=== PATIENT | male | born 1955 | race Hispanic/Latino ===

== ENCOUNTER 2018-02-23 14:00 | Emergency (ER) | payer SELFPAY ==
[2018-02-23 14:39] VITALS: TEMP 97
--- NOTE | 2018-02-23 15:21 | CT ---
EXAM DESCRIPTION: Cervical Spine CLINICAL HISTORY: headache, fall -16 ft ladder COMPARISON: None available. TECHNIQUE: Axial noncontast CT of the cervical spine with coronal and sagittal reformats. This exam was performed according to our departmental dose-optimization program, which includes automated exposure control, adjustment of the mA and/or kV according to patient size and/or use of iterative reconstruction technique. FINDINGS: Cervical vertebral body heights are maintained. There is straightening of the normal cervical lordosis. 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 No acute fracture or posttraumatic positional abnormality of the cervical spine is seen. Moderate disc space narrowing from C5 through C7 with disc osteophytic ridging contributes to at least mild spinal canal stenosis and [id number] foraminal encroachment. Soft tissues show no acute findings. Lung apices are unremarkable. IMPRESSION: No CT evidence of acute fracture or posttraumatic positional abnormality of the cervical spine is seen. Moderate disc degenerative changes at C5-6 and C6-7 contributes to spinal canal stenosis and foraminal encroachment. Electronically signed by: Kevin Rider MD 02/23/2018 3:20 PM CDT
--- NOTE | 2018-02-23 15:23 | RAD ---
EXAM DESCRIPTION: Chest,1 View CLINICAL HISTORY: sob COMPARISON: None. IMPRESSION: Single AP portable upright view of the chest shows cardiac silhouette and pulmonary vasculature to be within normal limits. Lungs are hypoaerated . There is crowding of the bronchovascular markings in the perihilar regions bilaterally that could be related to poor inspiratory effort versus atelectasis or infiltrates. No obvious pleural effusion or pneumothorax is seen. Electronically signed by: Kevin Rider MD 02/23/2018 3:21 PM CDT
--- NOTE | 2018-02-23 15:23 | RAD ---
EXAM DESCRIPTION: Wrist,Left 3 Views CLINICAL HISTORY: left wrist pain COMPARISON: None. IMPRESSION: 4 views of the left wrist show a comminuted, intra-articular minimally impacted fracture of the distal radius. No significant angulation of the fracture fragments is seen. Moderate vascular calcifications are seen. Mild osteoarthritic changes of the first carpometacarpal joint are seen. Electronically signed by: Kevin Rider MD 02/23/2018 3:22 PM CDT
--- NOTE | 2018-02-23 15:25 | CT ---
EXAM DESCRIPTION: Chest w/Contrast CLINICAL HISTORY: 62 years, Male, headache, fall -16 ft ladder COMPARISON: None TECHNIQUE: Thin-section axial CT images are obtained during rapid bolus administration of nonionic IV contrast media. Reconstructed MPR images are created and reviewed as well. This exam was performed according to our departmental dose-optimization program, which includes automated exposure control, adjustment of the mA and/or kV according to patient size and/or use of iterative reconstruction technique. FINDINGS: Enhanced examination of the chest demonstrates normal vascular enhancement with no evidence of aortic injury. The base of the neck and thoracic inlet as well as the hilar regions and middle mediastinum are unremarkable. Crowded basilar markings in both lower lung verduzco are present consistent with dependent atelectasis. No pulmonary contusion or hemothorax or pneumothorax is seen. Hypertrophic degenerative changes in the lower dorsal spine are present with normal alignment. The sternum appears intact. Minimal scoliosis of the spine towards the right is present. No definite rib fractures and no compression deformities of the dorsal spine noted. IMPRESSION: Small lung volumes with dependent atelectasis in both posterior lung bases with no evidence of acute intrathoracic injury. Electronically signed by: Edgard Andres MD 02/23/2018 3:24 PM CDT
--- NOTE | 2018-02-23 15:25 | CT ---
EXAM DESCRIPTION: Head CLINICAL HISTORY: headache, fall -16 ft ladder COMPARISON: None TECHNIQUE: Noncontrast transaxial CT images of the head are obtained from base to vertex. This exam was performed according to our departmental dose-optimization program, which includes automated exposure control, adjustment of the mA and/or kV according to patient size and/or use of iterative reconstruction technique. FINDINGS: The midline structures are not displaced. The sulci are age appropriate. The lateral, third, and fourth ventricles are normal in size, shape, and anatomic positioning. There is no evidence of mass, mass effect, hydrocephalus, or acute intracranial hemorrhage. No abnormal extra axial fluid collections are seen. Normal ayers-white differentiation is seen. The visualized bone windows show no depressed skull fracture or significant abnormality. The visualized paranasal sinuses and mastoid air cells are clear. IMPRESSION: 1. No acute abnormality is seen on noncontrast CT of the head. Electronically signed by: Kevin Rider MD 02/23/2018 3:24 PM CDT
--- NOTE | 2018-02-23 15:26 | RAD ---
EXAM DESCRIPTION: Pelvis CLINICAL HISTORY: sob pelvic pain status post trauma. COMPARISON: None. IMPRESSION: Single AP view of the pelvis shows no evidence of acute fracture, focal bone destruction, or joint dislocation. Mild osteoarthritic changes of the hips are seen. Contrast is seen in the urinary bladder and right ureter. Electronically signed by: Kevin Rider MD 02/23/2018 3:25 PM CDT
--- NOTE | 2018-02-23 15:56 | CT ---
EXAM DESCRIPTION: Maxillofacial CLINICAL HISTORY: headache, fall -16 ft ladder COMPARISON: None Available. TECHNIQUE: CT of the sinuses is performed with direct axial imaging technique. Multiplanar reformatted images are reviewed post along with source images. FINDINGS: Metallic foreign body in the left face is seen with metal artifact along the left side of the mandible below the level of the zygomatic arch. No mandibular fracture No definite fracture of the bones of the facial skeleton. Intact skull base. Normal aeration of tympanic cavities and mastoid air cells. Small mucous retention cysts in the inferior right maxillary sinus. No fluid levels in the paranasal sinuses. The lower portion of the calvarium appears intact. Intact appearance of the globes. Normal orbital contents. Slight deformity of the nasal skeleton is seen without significant overlying soft tissue swelling to suggest an acute fracture. Clinical correlation recommended. No buckling of the nasal septum. The maxillary processes appear intact. No fracture of the maxillary dolan or zygomatic arches. Normal TMJ alignment. Coronal and sagittal reformatted images confirm the findings. Coronal images suggest minimal fluid in the inferior maxillary sinuses bilaterally. No acute nasal bone fracture seen on the coronal images. No medial or inferior orbital blowout fracture. IMPRESSION: No acute fracture of the facial skeleton is identified. This exam was performed according to our departmental dose-optimization program, which includes automated exposure control, adjustment of the mA and/or kV according to patient size and/or use of iterative reconstruction technique. Total DLP 361.12. Electronically signed by: Paul Garcia MD 02/23/2018 3:55 PM CDT
[2018-02-23] MEDS ORDERED: HYDROcodone 7.5MG/APAP 325MG 1 EA TAB PO ONE (16:03)
--- NOTE | 2018-02-23 16:11 | ED.PDOC ---
History of Present Illness - General Chief Complaint: Trauma Stated Complaint: fall from ladder Time Seen by Provider: 02/23/18 14:18 Source: patient, family Exam Limitations: no limitations - History of Present Illness Initial Comments: HE FELL FROM A 16 FOOT LADDER, INJURED HIS FACE, HEAD LEFT WRIST. EVIDENTLY NO LOC. WAS AMBULATORY AT THE SCENE. HE IS BROUGHT TO THE ED BY POV. Timing/Duration: 1/2 hour Severity: moderate Improving Factors: nothing Worsening Factors: movement Associated Symptoms: denies symptoms Allergies/Adverse Reactions: Allergies NO KNOWN ALLERGY Allergy (Verified 02/23/18 14:44) Home Medications: Ambulatory Orders Tramadol HCl 50 mg PO Q6HR #20 tab 02/23/18 Review of Systems - Review of Systems Constitutional: States: no symptoms reported EENTM: States: no symptoms reported Respiratory: States: no symptoms reported Cardiology: States: no symptoms reported Gastrointestinal/Abdominal: States: abdominal pain Genitourinary: States: no symptoms reported Musculoskeletal: States: no symptoms reported, joint pain, joint swelling, other - LEFT WRIST. FACE IS SWOLLEN Skin: States: no symptoms reported Neurological: States: no symptoms reported Endocrine: States: no symptoms reported Past Medical History (General) - Patient Medical History Hx Stroke: No Hx of COPD: No Hx Congestive Heart Failure: No Hx Diabetes: No Surgical History: other Family Medical History - Family History Mother Family History: No Known Physical Exam - Physical Exam General Appearance: Alert, Comfortable, Well Developed Eye Exam: bilateral normal Ears, Nose, Throat: hearing grossly normal, normal ENT inspection, normal pharynx Neck: non-tender, full range of motion, supple, normal inspection Respiratory: chest non-tender, lungs clear, normal breath sounds, no respiratory distress, no accessory muscle use Cardiovascular/Chest: normal peripheral pulses, regular rate, rhythm, no edema, no gallop, no JVD, no murmur Gastrointestinal/Abdominal: normal bowel sounds, non tender, soft, tenderness - RUQ AND LUP PAIN Rectal Exam: deferred Back Exam: normal inspection, no CVA tenderness, no vertebral tenderness Extremity: other - LEFT WRIST TENDER TP PALPATION Neurologic: no motor/sensory deficits, alert, normal mood/affect, oriented x 3 Progress - Progress Progress: 02/23/18 16:27 IMAGING IS REPORTED: ONLY POSITIVE FINDING IS A LEFT INTRA-ARTICULAR FRACTURE OF THE DISTAL LEFT WRIST. - Results/Orders Results/Orders: LABORATORY IS REPORTED= NORMAL Procedures - Splinting Left Arm Hand-Made Type: fiberglass Splint: sugar-tong Pre-Proc Neuro Vasc Exam: normal Post-Proc Neuro Vasc Exam: normal Departure - Departure Clinical Impression: Cervical spine pain Distal radial fracture Qualifiers: Encounter type: initial encounter Fracture type: closed Fracture morphology: other intra-articular Laterality: left Qualified Code(s): S52.572A - Other intraarticular fracture of lower end of left radius, initial encounter for closed fracture Chest wall contusion Qualifiers: Encounter type: initial encounter Laterality: unspecified laterality Qualified Code(s): S20.219A - Contusion of unspecified front wall of thorax, initial encounter Facial contusion Qualifiers: Encounter type: initial encounter Qualified Code(s): S00.83XA - Contusion of other part of head, initial encounter Closed head injury Qualifiers: Encounter type: initial encounter Qualified Code(s): S09.90XA - Unspecified injury of head, initial encounter Time of Disposition: 16:35 Disposition: Discharge to Home or Self Care Condition: Fair Departure Forms: ED Discharge - Pt. Copy, Patient Portal Self Enrollment Instructions: DI for Trauma, DI for Forearm Fracture Diet: resume usual diet Prescriptions: Tramadol HCl 50 mg PO Q6HR #20 tab Home Medications: Ambulatory Orders Tramadol HCl 50 mg PO Q6HR #20 tab 02/23/18 Critical Care Note - Critical Care Note Total Time (mins): 35 Comments: CRITICAL EVENT: FALL FROM 16 FEET CRITICAL FINDINGS: LEFT WRIST FRACTURE CRITICAL ACTIONS: BODY SCAN, IV CRISTALOIDS, ANALGESIA CRITICAL TIME: 35 MINUTES SYSTEMS AT RISK: MUSCULOSKELETAL
[2018-02-23 17:10] VITALS: BP 126/66; O2SAT 98
--- NOTE | 2018-02-23 21:01 | CT ---
EXAM DESCRIPTION: Abdomen/Pelvis w/Contrast CLINICAL HISTORY: 62 years Male generalized chest pain and pelvic pain, fall -16 ft ladder COMPARISON: None. TECHNIQUE: Contiguous axial images obtained through the abdomen and pelvis following IV contrast. Reformatted images obtained. This exam was performed according to our department optimization program which includes automated exposure control, adjustment of the mA and/or kv according to patient size and/or use of iterative reconstruction technique. FINDINGS: Dependent atelectatic changes. The liver appears unremarkable. The spleen and pancreas appear unremarkable. No adrenal masses. The kidneys appear unremarkable. No hydronephrosis. The gallbladder is visualized. No aneurysmal dilatation of the aorta. No bowel obstruction. There is a cystic appearing lesion in the right lower quadrant which appears to be contiguous with the appendix. This measures approximately 7.5 cm in length by 4 cm in AP diameter by 4.4 cm in transverse diameter. 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 No free pelvic fluid. Fat-containing umbilical hernia. Degenerative changes in the spine and SI joints. No acute osseous abnormality is identified. IMPRESSION: No acute intra-abdominal injury is identified. 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 This finding was discussed with Dr. Pj Carr at approximately 9:00 PM. Electronically signed by: Deangelo Daniel MD 02/23/2018 9:00 PM CDT
== END 2018-02-23 17:12 | disposition home or self-care (01) ==
LOC: ER 14:00
DX: S00.83XA Contusion of other part of head, initial encounter (principal); S20.219A Contusion of unspecified front wall of thorax, initial encounter; S52.572A Other intraarticular fracture of lower end of left radius, initial encounter for closed fracture; S09.90XA Unspecified injury of head, initial encounter; M54.2 Cervicalgia; W11.XXXA Fall on and from ladder, initial encounter; Y92.9 Unspecified place or not applicable